=== PATIENT | female | born 1985 | race African-American/Black ===

== ENCOUNTER 2020-01-09 16:11 | Outpatient (CLI) | payer OTHER, SELFPAY ==
[2020-01-09 16:49] LABS: Hematocrit 34.7 % (37.0-47.0); Hemoglobin 11.2 g/dL (12.0-15.0); Mean Corpuscular HGB Conc 32.3 g/dl (32-36); Mean Corpuscular Hemoglobin 27.5 pg (26-34); Mean Platelet Volume 8.5 fl (7.4-10.4); Platelet Count Result 451 k/mm3 (150-375); Red Blood Count 4.08 M/mm3 (4.2-5.4); Red Cell Distribution Width 15.6 % (11.5-14.5); White Blood Count 8.1 K/mm3 (4.5-10.0)
[2020-01-09 16:55] LABS: Add Urine Microscopic? YES; Appearance Urine Cloudy (Clear); Bacteria Urine Trace /hpf; Bilirubin Urine Negative (Negative); Blood Urine Negative (Negative); Color Urine Straw (Yellow); Glucose Urine UA Negative (Negative); Ketones Urine Negative (Negative); Leukocyte Esterase Ur Trace LEU/UL (NEGATIVE); Mucus Urine Rare /lpf; Nitrate Urine Negative (Negative); Protein Urine Negative (Negative); RBC Urine 0-2 /hpf (0-2); Squamous Epithelial Cell Urine Many /hpf (Few); Urobilinogen Urine Negative mg/dL (<2.0); WBC Urine 0-3 /hpf (0-3)
[2020-01-09 16:59] LABS: Hemoglobin A1C 5.1 % (<5.7)
[2020-01-09 17:02] LABS: Alanine Aminotransferase 19 U/L (4-35); Albumin Level 4.3 g/dL (3.5-5.1); Alkaline Phosphatase 67 U/L (38-126); Anion Gap 7 mmol/L (8-16); Aspartate Amino Transferase 26 U/L (14-36); Bilirubin,Total 0.2 mg/dL (0.2-1.3); Blood Urea Nitrogen 10 mg/dL (7-17); Calcium 9.1 mg/dL (8.4-10.2); Carbon Dioxide 29 mmol/L (22-30); Chloride 100 mmol/L (98-107); Cholesterol 187 mg/dL (0-200); Estimated Glomerular Filt Rate > 60; Glucose 127 mg/dL (65-105); HDL Direct 48 mg/dL; Potassium 3.7 mmol/L (3.4-5.0); Sodium 136 mmol/L (137-145); Triglycerides 111 mg/dL (<150)
[2020-01-09 17:13] LABS: LDL Cholesterol Direct 114 mg/dL
[2020-01-09 17:27] LABS: Iron 27 ug/dL (37-170)
[2020-01-09 17:43] LABS: Vitamin D 25 Hydroxy 17.9 ng/mL
[2020-01-09 18:03] LABS: Ferritin 4.74 ng/mL (6.24-137)
[2020-01-09 18:07] LABS: Folic Acid 6.7 ng/mL (2.76->20)
== END 2020-01-09 16:12 | disposition home or self-care (01) ==
LOC: ANHLAB 16:17
PROVIDERS: PCP Internal Medicine; Visit Provider Internal Medicine
DX: Z00.00 Encounter for general adult medical examination without abnormal findings (principal)
CPT/HCPCS: 36415; 80053; 80061; 81001; 82306; 82607; 82728; 82746; 83036; 83540; 84443; 85027